=== PATIENT | female | born 1955 | race Caucasian/White ===

== ENCOUNTER 2020-07-08 13:07 | Outpatient (CLI) | payer BC ==
[~2020-07-08 13:07] MED LIST: ASPI325T17 PO; ASPI81TA45 PO; ATOR80TA PO; CLOP75TA52 PO; FLUT1DIS3 INH; LEVO88TA4 PO; MAGN400T36 PO; METO25TA35 PO; SUMA100T4 PO; ZOLP10TA PO
== END 2020-07-08 23:59 | disposition home or self-care (01) ==
LOC: CFH 13:07
PROVIDERS: ATTEND Internal Medicine
DX: J43.2 Centrilobular emphysema (principal); J84.10 Pulmonary fibrosis, unspecified; R09.02 Hypoxemia
CPT/HCPCS: 71250